=== PATIENT | male | born 1970 | race Caucasian/White ===

== ENCOUNTER 2024-10-11 06:58 | Day surgery (SDC) | payer OTHER ==
[~2024-10-11 06:58] MED LIST: MARCAINE 0.5%-EPI 1:200,000 VL IJ ONE
[2024-10-11] MEDS ORDERED: TYLENOL EXTRA STRENGTH 500 MG ONE (07:02)
[2024-10-11] MEDS ORDERED: celeBREX 100 MG ONE (07:03)
[2024-10-11] MEDS ORDERED: NEURONTIN ONE (07:03)
[2024-10-11] MEDS ORDERED: Decadron 4 MG ONE (07:03)
[2024-10-11] MEDS ORDERED: Lactated Ringers 1,000 ML IV ONE (07:03)
[2024-10-11] MEDS: NEURONTIN PO ONE (07:06)
[2024-10-11] MEDS: celeBREX 100 MG PO ONE (07:06)
[2024-10-11] MEDS: Decadron 4 MG PO ONE (07:06)
[2024-10-11] MEDS: TYLENOL EXTRA STRENGTH 500 MG PO ONE (07:06)
[2024-10-11] MEDS: Lactated Ringers 1,000 ML IV SCH (07:06)
[2024-10-11] MEDS ORDERED: CEFAZOLIN 2 GM/100 ML NaCl 2 GM/100 ML IVPB IV SCH (07:15)
[2024-10-11 07:20] VITALS: RESP 16
[2024-10-11] MEDS: CLINDAMYCIN-D5W 900 MG/50 ML*** 900 MG/50 ML BAG IV ONE (07:53)
[2024-10-11] MEDS ORDERED: propofoL IV ONE (09:20)
[2024-10-11] MEDS ORDERED: Zofran 4 MG/2 ML VIAL ONE (09:23)
[2024-10-11] MEDS ORDERED: Xylocaine-Mpf 2% 5 Ml Vial ONE (09:23)
[2024-10-11] MEDS ORDERED: SUBLIMAZE 100 MCG/2 ML ONE (09:25)
[2024-10-11] MEDS ORDERED: TORAdol 30 mg Injection ONE (09:33)
[2024-10-11 11:27] VITALS: BP 141/95; PULSE 72; TEMP 97.8; O2SAT 98
--- NOTE | 2024-10-14 12:39 | OP ---
SURGERY DATE/TIME: 10/11/2024 [id number] PREOPERATIVE DIAGNOSIS: Torn left medial meniscus, pseudogout, left knee. POSTOPERATIVE DIAGNOSES: Torn left medial meniscus, pseudogout, left knee; chondromalacia of trochlear groove. PROCEDURE: Arthroscopy of the left knee with partial medial meniscectomy and chondroplasty of trochlear groove. SURGEON: Zheng Johnson II, DO. ANESTHESIA: General. DESCRIPTION OF PROCEDURE AND FINDINGS: The patient was identified and informed consent was obtained. The patient was taken to the operative suite and placed in supine position on the operating table where general anesthetic was administered. Once an appropriate level of anesthesia had been obtained, tourniquet was placed high on the left thigh. The left lower extremity was placed in a knee cloud, prepped and draped in the usual sterile fashion. A standard time-out was taken. Following this, the leg was exsanguinated and tourniquet elevated to 350 mmHg. A standard superomedial portal was created with an 11 blade, trocar and cannula were placed in the joint, and joint was distended with the arthroscopic pump. Inferolateral portal was then created with an 11 blade and the arthroscope was then placed in through a cannula. An 18-gauge spinal needle identified the level for the inferomedial portal which was also created with an 11 blade. The knee was then inspected in a systematic fashion beginning with the suprapatellar pouch where there were no loose bodies or synovial hypertrophy. Gutters were inspected again. No loose bodies or synovial hypertrophy. The undersurface of the patella had some very minimal grade 1 to early grade 2 chondromalacia changes in the deepest portion, incidentally shaved. The patient did have some grade 2 and 3 chondromalacia in the trochlear groove with some loose tissue at the edge and a chondroplasty was performed. At this point, the scope was placed into the medial compartment where a posterior horn root tear was noted with also a radial component. This was resected with the handheld biting instruments and shaved to a smooth transition with the shaver. The patient did have some very minimal degenerative changes noted in the medial compartment, incidental shaving was accomplished on the femoral condyle. The scope was placed in the intercondylar notch region where the anterior cruciate ligament was noted to be intact without evidence of attenuation or tears. The scope was then placed into the lateral compartment where the lateral meniscus was probed throughout its entirety and noted to be intact. There was no chondromalacia or degenerative changes noted on the lateral femoral condyle or tibial plateau. It should be noted that throughout the joint there was evidence of the patient's chronic pseudogout. At this point, the knee was reinspected and copiously irrigated and no further pathology was identified. The instrumentation was removed, and the portal sites were closed with interrupted 4-0 nylon suture. The knee was infiltrated with 30 mL of 0.25% Marcaine with epinephrine. Adaptic, 4 x 4's, and a standard postop arthroscopy dressing applied. The patient was transferred to the cart and taken to the recovery room in satisfactory condition, having tolerated the procedure well.
== END 2024-10-11 11:42 | disposition home or self-care (01) ==
LOC: SDC 06:58
PROVIDERS: ATTEND Orthopaedic Surgery
DX: S83.242A Other tear of medial meniscus, current injury, left knee, initial encounter (principal); M94.262 Chondromalacia, left knee
CPT/HCPCS: J1885; J2405; J2704; J3010; A9270-GY

== ENCOUNTER 2024-11-22 07:16 | Day surgery (SDC) | payer OTHER ==
[2024-11-22] MEDS: Lactated Ringers 1,000 ML IV SCH (07:27)
[2024-11-22] MEDS: TYLENOL EXTRA STRENGTH 500 MG PO ONE (07:27)
[2024-11-22] MEDS: CLINDAMYCIN-D5W 900 MG/50 ML*** 900 MG/50 ML BAG IV ONE (07:27)
[2024-11-22] MEDS: NEURONTIN PO ONE (07:27)
[2024-11-22] MEDS: celeBREX 100 MG PO ONE (07:27)
[2024-11-22] MEDS: Decadron 4 MG PO ONE (07:28)
[2024-11-22] MEDS ORDERED: dexAMETHasone sodium phosphate ONE (10:14)
[2024-11-22] MEDS ORDERED: propofoL IV ONE (10:14)
[2024-11-22] MEDS ORDERED: Zofran 4 MG/2 ML VIAL ONE (10:14)
[2024-11-22] MEDS ORDERED: SUBLIMAZE 100 MCG/2 ML ONE (10:14)
[2024-11-22] MEDS ORDERED: Sensorcaine 0.25% 10 ML ONE (10:14)
[2024-11-22] MEDS ORDERED: MARCAINE 0.25% PF/ EPI 1:200,000 ONE (10:15)
[2024-11-22] MEDS ORDERED: MARCAINE 0.5%-EPI 1:200,000 VL IJ ONE (10:16)
[2024-11-22 12:19] VITALS: PULSE 72; RESP 16; TEMP 97.5
[2024-11-22 12:34] VITALS: BP 138/92; O2SAT 100
--- NOTE | 2024-11-25 10:55 | OP ---
SURGERY DATE/TIME: 11/22/2024 [id number] PREOPERATIVE DIAGNOSES: 1. Torn right meniscus. 2. Chondrocalcinosis right knee. POSTOPERATIVE DIAGNOSES: 1. Torn right meniscus. 2. Chondrocalcinosis right knee. PROCEDURE: Right knee arthroscopy with partial medial meniscectomy. SURGEON: Zheng Johnson II, DO DESCRIPTION OF PROCEDURE AND FINDINGS: The patient was identified and informed consent was obtained. The patient was taken to the operative suite and placed onto the supine position on the operating table where the general anesthetic was administered. Once an appropriate level of anesthesia had been obtained, tourniquet was placed high on the right thigh. The right lower extremity was placed in a knee cloud, prepped and draped in the usual sterile fashion. A standard time-out was taken. The leg was exsanguinated and tourniquet elevated to 350 mmHg. At this point, a superomedial portal was created with an 11 blade. Trocar and cannula were placed in the joint. Joint was distended with the arthroscopic pump. Inferolateral portal was created with an 11 blade and the arthroscope was placed in through a cannula. An 18-gauge spinal needle identified the level for the inferomedial portal, which was also created with an 11 blade. Knee was then inspected in a systematic fashion beginning in the suprapatellar pouch where there was no evidence of loose bodies or synovial hypertrophy. The undersurface of the patella had some grade 2 and 3 chondromalacia and a chondroplasty was performed with the shaver. Trochlear groove had grades 2 and 3 chondromalacia as well and a chondroplasty was performed with the shaver. The loose edges of the tissue were contoured with the arthroscopic wand. The scope was placed into the medial compartment where a complex tear involving the posterior and middle horns of the medial meniscus was encountered. This was resected with the handheld biting instruments and shaved to a smooth transition with the shaver. Intercondylar notch region was inspected and the anterior cruciate ligament was noted to be intact. Scope was placed into the lateral compartment where the lateral meniscus was probed throughout its entirety on both the upper and undersurfaces. No evidence of tearing was noted. However, the patient did have significant chondrocalcinosis noted in the lateral meniscus. At this point, the femoral condyle and tibial plateau were also noted to be intact without degenerative changes. The knee was then copiously irrigated and reinspected. No further pathology identified. The instrumentation was removed and the portal sites were closed with interrupted 4-0 nylon suture. The knee was infiltrated with 30 mL of 0.25% Marcaine with epinephrine. Adaptic, 4 x 4's, and a standard postop arthroscopy dressing applied. The patient was transferred to the cart and taken to the recovery room in satisfactory condition, having tolerated the procedure well.
== END 2024-11-22 12:45 | disposition home or self-care (01) ==
LOC: SDC 07:16
PROVIDERS: ATTEND Orthopaedic Surgery
DX: S83.241D Other tear of medial meniscus, current injury, right knee, subsequent encounter (principal); M11.261 Other chondrocalcinosis, right knee
CPT/HCPCS: 29881; J1100; J2405; J2704; J3010; A9270-GY